=== PATIENT | female | born 1940 | race Caucasian/White ===

== ENCOUNTER 2017-01-05 11:20 | Observation (INO) | payer OTHER, MEDICARE ==
[~2017-01-05] VITALS: Ht 154.9 cm; Wt 90.7 kg
--- NOTE | 2017-01-05 11:24 | ED SYNCOPE COMPLAINT ---
History of Present Illness General Chief Complaint: Syncope and Near-Syncope Stated Complaint: BIBA NEAR SYNCOPE Source: patient, family, EMS Exam Limitations: no limitations Vital Signs & Intake/Output Vital Signs & Intake/Output Vital Signs Date Time Temp Pulse Resp B/P Pulse O2 O2 Flow FiO2 Ox Delivery Rate 01/05 1212 71 18 123/59 95 Room Air 01/05 1126 97.2 74 18 135/60 95 Room Air Allergies Coded Allergies: Sulfa (Sulfonamide Antibiotics) (UNKNOWN 01/05/17) Reconcile Medications Diltiazem HCl 120 MG TABLET 1 TAB PO TID HEART (Reported) Docusate Sodium (Stool Softener) 100 MG CAPSULE 2 CAP PO DAILY STOOL SOFTENER (Reported) Ferrous Sulfate 325 MG (65 MG IRON) TABLET 1 TAB PO DAILY SUPPLEMENT ( Reported) Folic Acid 0.8 MG TABLET 1 TAB PO DAILY SUPPLEMENT (Reported) Gabapentin 100 MG CAPSULE 1 CAP PO TID PAIN (Reported) Guaifenesin (Mucinex) 600 MG TAB.ER.12H 1 TAB PO BID COLD SYMPTOMS (Reported) Hydrocodone/Acetaminophen (Hydrocodon-Acetaminophen 5-325) 5 MG-325 MG TABLET 1 TAB PO Q4 HRS NEEDED PRN PAIN (Reported) Losartan Potassium 100 MG TABLET 1 TAB PO DAILY HEART (Reported) Lovastatin 40 MG TABLET 1 TAB PO QPM CHOLESTEROL (Reported) with food Multivitamin (Daily Multiple Vitamin) 1 EACH TABLET 1 TAB PO DAILY SUPPLEMENT (Reported) Omeprazole 40 MG CAPSULE.DR 1 CAP PO DAILY GI (Reported) Tramadol HCl 50 MG TABLET 1 TAB PO BIDP PRN PAIN (Reported) Warfarin Sodium (Coumadin) 2.5 MG TABLET 1 TAB PO 1700 BLOOD THINNER ( Reported) Triage Nurses Notes Reviewed? yes Timing: single episode today Precipitating Factors: SITTING IN SHOWER Context: DIZZINESS AFTER STANDING Loss of Consciousness: no loss of consciousness Associated Symptoms: DIZZY, WEAK, LEFT SHOULDER PAIN HPI: 76 year old female who presents via EMS from home for chief complaint of shoulder pain, dizziness and weakness while standing up from her shower chair. She transferred herself to the commode and then called the daughter for help. Patient was leaning forward, but no LOC, she was speaking to her the whole time. Patient has been getting PT and a visiting nurse at home since knee replacement. No chest pain, palpitations, dyspnea. Eating and drinking well at home. Vital signs stable yesterday. The patient is on new medications coumadin, gabapentin and hydrocodone. kateryna weaver Past History Travel History Traveled to [place] past 21 day No Medical History Any Pertinent Medical History? see below for history Cardiovascular: hypertension, hyperlipidemia, MVP Surgical History Surgical History: knee replacement (RIGHT) Family History Hx Contributory? No Review of Systems Review of Systems Constitutional: Reports: weakness. Denies: chills, fever. EENTM: Reports: no symptoms. Respiratory: Denies: cough, short of breath, sputum production. Cardiovascular: Denies: chest pain, palpitations, peripheral edema. GI: Denies: abdominal pain. Genitourinary: Reports: no symptoms. Musculoskeletal: Reports: joint pain. Skin: Reports: no symptoms. Neurological/Psychological: Reports: see HPI (DIZZY). All Other Systems: Reviewed and Negative Physical Exam Physical Exam General Appearance: well developed/nourished, alert, awake, anxious, moderate distress, obese Head: atraumatic, normal appearance Eyes: Bilateral: normal appearance, PERRL, EOMI. Ears, Nose, Throat: normal pharynx, normal ENT inspection, hearing grossly normal Neck: normal inspection, supple, full range of motion Respiratory: normal breath sounds, chest non-tender, no respiratory distress Cardiovascular: regular rate/rhythm Gastrointestinal: soft, non-tender Extremities: normal inspection, normal capillary refill, normal range of motion, swelling (MILD BILATERALLY), HEALING LEFT KNEE INCISION Psychiatric: awake, alert, oriented x 3 Cranial Nerves: normal hearing, normal speech, PERRL Coordination/Gait: SLOW, STEADY GAIT Skin: intact, normal color, warm/dry Core Measures ACS in differential dx? No CVA/TIA Diagnosis: No Severe Sepsis Present: No Septic Shock Present: No Progress Differential Diagnosis: AMI, orthostatic syncope, pulmonary embolus, NEAR SYNCOPE Plan of Care: Orders Procedure Date/time Status US-EXT BILAT VENOUS DOPPLER 01/05 1254 Active URINE DRUGS OF ABUSE 01/05 1147 Active MISTAKE 01/05 1136 Active Telemetry/Electromechanisms Design Drafter 01/05 1136 Active TROPONIN LEVEL 01/05 1136 Complete PARTIAL THROMBOPLASTIN TIME 01/05 1136 Complete PROTHROMBIN TIME 01/05 1136 Complete COMPREHENSIVE METABOLIC PANEL 01/05 1136 Complete CBC WITHOUT DIFFERENTIAL 01/05 1136 Complete EKG 01/05 1122 Active Laboratory Tests 01/05/17 1155: Anion Gap 8, Estimated GFR 29 L, BUN/Creatinine Ratio 20.6, Glucose 114 H, Calcium 10.8 H, Total Bilirubin 0.6, AST 31, ALT 39, Alkaline Phosphatase 123, Troponin I < 0.01, Total Protein 6.6, Albumin 3.6, Globulin 3.0, Albumin/ Globulin Ratio 1.2, CBC w Diff NO MAN DIFF REQ, RBC 3.11 L, MCV 93.8, MCH 31.1 H, RDW 13.9, MPV 6.6 L, Gran % 79.1 H, Lymphocytes % 14.8 L, Monocytes % 4.8, Eosinophils % 0.9, Basophils % 0.4, Absolute Granulocytes 9.1 H, Absolute Lymphocytes 1.7, Absolute Monocytes 0.5, Absolute Eosinophils 0.1, Absolute Basophils 0, PUBS MCHC 33.2 01/05/17 1147: PT 20.9 H, INR 2.00 H, APTT 26 Diagnostic Imaging: Viewed by Me: Radiology Read, Ultrasound. Discussed w/RAD: Radiology Read, Ultrasound. CXR Impression: PATIENT: JAIDA BAEZ PRESENT AGE: 76 PATIENT ACCOUNT NO: [id number] : 39 LOCATION: [facility] ORDERING PHYSICIAN: ABRAN CHAIREZ MD SERVICE DATE: 01/05/17 EXAM TYPE: RAD - XRY-CHEST XRAY , PA AND LATERAL EXAMINATION: XR CHEST CLINICAL INFORMATION: 76-year-old woman with back pain and near syncope. COMPARISON: 06/16/2014 chest radiograph TECHNIQUE: 2 views of the chest were obtained. FINDINGS: The lungs are well expanded and clear, without evidence of focal airspace consolidation or pulmonary edema. Heart size is within the range of normal. There are no pleural effusions. Degenerative changes are again noted in the lower thoracic spine. IMPRESSION: No radiographic evidence of an acute cardiopulmonary process. DICTATED BY: ERIC CASTRO MD DATE/TIME DICTATED:01/05/171318 V BELT COVERER: JORJE DATE/TIME TRANSCRIBED:01/05/171318 CONFIDENTIAL, DO NOT COPY WITHOUT APPROPRIATE AUTHORIZATION. <Electronically signed in Other Vendor System> SIGNED BY: ERIC CASTRO MD 01/05/17 1323 Initial ED EKG: RBBB Rhythm Strip: normal sinus rhythm Comments: PATIENT: JAIDA BAEZ PRESENT AGE: 76 PATIENT ACCOUNT NO: [id number] : 39 LOCATION: [facility] ORDERING PHYSICIAN: ABRAN CHAIREZ MD SERVICE DATE: 01/05/17 EXAM TYPE: US - US-EXT BILAT VENOUS DOPPLER EXAMINATION: US TRIPLEX LOWER EXTREMITY, BILATERAL CLINICAL INFORMATION: 76-year-old woman with near syncope. COMPARISON: None TECHNIQUE: Color-flow triplex imaging with spectral analysis and compression Doppler were performed on the bilateral lower extremities. FINDINGS: Respiratory variation, normal compression and augmented flow are noted throughout the bilateral lower extremities. The visualized common femoral vein, superficial femoral vein, profunda femoral vein, popliteal vein and midcalf peroneal and posterior tibial venous segments show no evidence of deep venous thrombosis. A thick-walled anechoic and avascular cyst is noted in the left popliteal fossa measuring 4.8 x 1.0 x 2.4 cm. IMPRESSION: No evidence of deep venous thrombosis involving the bilateral lower extremities. Left sided Headley's cyst. DICTATED BY: ERIC CASTRO MD DATE/TIME DICTATED:01/05/171355 V BELT COVERER:JORJE DATE/TIME TRANSCRIBED:01/05/171355 CONFIDENTIAL, DO NOT COPY WITHOUT APPROPRIATE AUTHORIZATION. <Electronically signed in Other Vendor System> SIGNED BY: ERIC CASTRO MD 01/05/17 1401 Departure Departure Time of Disposition: 1409 Disposition: STILL A PATIENT Condition: Stable Clinical Impression Primary Impression: Near syncope Referrals: GELA CONWAY MD (PCP/Family) Departure Forms: Customer Survey General Discharge Information Observation Note Spoke With: DAREN GUZMAN MD Physician Advisor Notified: PARKER GERMAN,CONSTANCE Loomis Patient In: Non-ED OBS Care Area Rationale for Observation: My rational for observation is as follows [EKG, TELE MONITOR, SERIAL EKG, SERIAL TROPONIN, F/U U/S RESULTS, CARDIOLOGY CONSULTATION, ECHOCARDIOGRAM].
--- NOTE | 2017-01-05 11:25 | NUR ---
76 YEAR OLD FEMALE C/O NEAR SYNCOPE. PER EMS REPORT PT STOOD UP AND FELT DIZZY BUT RESOLVED WHEN SHE SAT BACK DOWN. PT IS S/P RIGHT TOTAL KNEE REPLACEMENT LAST WEEK/ PT REPORTS TAKING HYDROCODONE AND TRAMADOL FOR PAIN MANAGEMENT.
--- NOTE | 2017-01-05 11:49 | NUR ---
DR. CHAIREZ TO BEDSIDE FOR EVAL.
--- NOTE | 2017-01-05 11:58 | NUR ---
LABS DRAWN AND SENT BY THIS [facility] (BLUE,2 SST,LAV,BRASHER)
[2017-01-05] MEDS ORDERED: HYDROCODON-ACE1 EAC2 PO (12:10)
[2017-01-05] MEDS ORDERED: GABAPENTIN100 M2 PO (12:10)
[2017-01-05] MEDS ORDERED: OMEPRAZOLE40 M1 PO (12:10)
[2017-01-05] MEDS ORDERED: TRAMADOL HCL50 M1 PO (12:10)
[2017-01-05] MEDS ORDERED: FERROUS SULFAT325 M3 PO (12:11)
[2017-01-05] MEDS ORDERED: LOVASTATIN40 M1 PO (12:11)
[2017-01-05] MEDS ORDERED: DILTIAZEM HCL120 M3 PO (12:11)
[2017-01-05] MEDS ORDERED: FOLIC ACID0.8 M2 PO (12:12)
[2017-01-05 12:13] LABS: ABSOLUTE BASOPHIL COUNT 0 /CUMM (0.0-0.2); ABSOLUTE EOSINOPHIL COUNT 0.1 /CUMM (0.0-0.7); ABSOLUTE GRANULOCYTE CT 9.1 /CUMM (1.4-6.5); ABSOLUTE LYMPH COUNT 1.7 /CUMM (1.2-3.4); ABSOLUTE MONOCYTE COUNT 0.5 /CUMM (0.10-0.60); BASOPHIL % 0.4 % (0.0-2.0); EOSINOPHIL % 0.9 % (0-5); GRANULOCYTE % 79.1 % (42.2-75.2); HEMATOCRIT 29.1 % (37-47); MEAN CORPUSCULAR HGB 31.1 PG (27.0-31.0); MEAN CORPUSCULAR HGB CONC 33.2 G/DL (33.0-37.0); MEAN CORPUSCULAR VOLUME 93.8 FL (81.0-99.0); MEAN PLATELET VOLUME 6.6 FL (7.4-10.4); PLATELET COUNT 576 /CUMM (130-400); RBC DISTRIBUTION WIDTH 13.9 % (11.5-14.5); RED BLOOD CELL CT 3.11 /CUMM (4.20-5.40); WHITE BLOOD CELL COUNT 11.5 /CUMM (4.8-10.8)
[2017-01-05] MEDS ORDERED: COUMADIN2.5 M1 PO (12:13)
[2017-01-05] MEDS ORDERED: LOSARTAN POTAS100 M1 PO (12:13)
[2017-01-05] MEDS ORDERED: DAILY MULTIPLE1 EACH PO (12:13)
[2017-01-05] MEDS ORDERED: STOOL SOFTENER100 M3 PO (12:13)
[2017-01-05] MEDS ORDERED: MUCINEX600 M1 PO (12:14)
[2017-01-05 12:17] LABS: PT 20.9 SEC (9.4-12.5); PTT 26 SEC (25-37)
--- NOTE | 2017-01-05 13:02 | NUR ---
PT TO RADIOLOGY FOR CHEST X-RAY VIA STRETCHER.
--- NOTE | 2017-01-05 13:23 | RADIOLOGY REPORT ---
EXAMINATION: XR CHEST CLINICAL INFORMATION: 76-year-old woman with back pain and near syncope. COMPARISON: 06/16/2014 chest radiograph TECHNIQUE: 2 views of the chest were obtained. FINDINGS: The lungs are well expanded and clear, without evidence of focal airspace consolidation or pulmonary edema. Heart size is within the range of normal. There are no pleural effusions. Degenerative changes are again noted in the lower thoracic spine. IMPRESSION: No radiographic evidence of an acute cardiopulmonary process.
--- NOTE | 2017-01-05 13:24 | NUR ---
PT TO US VIA STRETCHER.
--- NOTE | 2017-01-05 14:01 | ULTRASOUND REPORT ---
EXAMINATION: US TRIPLEX LOWER EXTREMITY, BILATERAL CLINICAL INFORMATION: 76-year-old woman with near syncope. COMPARISON: None TECHNIQUE: Color-flow triplex imaging with spectral analysis and compression Doppler were performed on the bilateral lower extremities. FINDINGS: Respiratory variation, normal compression and augmented flow are noted throughout the bilateral lower extremities. The visualized common femoral vein, superficial femoral vein, profunda femoral vein, popliteal vein and midcalf peroneal and posterior tibial venous segments show no evidence of deep venous thrombosis. A thick-walled anechoic and avascular cyst is noted in the left popliteal fossa measuring 4.8 x 1.0 x 2.4 cm. IMPRESSION: No evidence of deep venous thrombosis involving the bilateral lower extremities. Left sided Headley's cyst.
--- NOTE | 2017-01-05 14:41 | History & Physical ---
AMERICO LYNCH MD 01/05/17 1439: General Information and HPI Source of Information: patient, family Exam Limitations: no limitations History of Present Illness: Patient is an 76-year-old female with significant past medical history of hypertension, hyperlipidemia, mitral valve prolapse, right knee replacement surgery on 24 December presented with chief complaints of shoulder pain, dizziness and weakness after standing up from her shower chair. After that she called her daughter. Her Daughter called EMS. Patient denies headache, fever, chills, nausea, vomiting, palpitation, chest pain, weakness in any part of the limb, seizures, trauma, toungue bite. Although she claims that her PO intake is poor, and she always have anemia for which she takes iron preparation. She is on warfarin 2.5mg for DVT prophylaxis for right knee arthritis. Allergies/Medications Allergies: Coded Allergies: Sulfa (Sulfonamide Antibiotics) (UNKNOWN 01/05/17) Home Med list Diltiazem HCl 120 MG TABLET 1 TAB PO TID HEART (Reported) Docusate Sodium (Stool Softener) 100 MG CAPSULE 2 CAP PO DAILY STOOL SOFTENER (Reported) Ferrous Sulfate 325 MG (65 MG IRON) TABLET 1 TAB PO DAILY SUPPLEMENT ( Reported) Folic Acid 0.8 MG TABLET 1 TAB PO DAILY SUPPLEMENT (Reported) Gabapentin 100 MG CAPSULE 1 CAP PO TID PAIN (Reported) Guaifenesin (Mucinex) 600 MG TAB.ER.12H 1 TAB PO BID COLD SYMPTOMS (Reported) Hydrocodone/Acetaminophen (Hydrocodon-Acetaminophen 5-325) 5 MG-325 MG TABLET 1 TAB PO Q4 HRS NEEDED PRN PAIN (Reported) Losartan Potassium 100 MG TABLET 1 TAB PO DAILY HEART (Reported) Lovastatin 40 MG TABLET 1 TAB PO QPM CHOLESTEROL (Reported) with food Multivitamin (Daily Multiple Vitamin) 1 EACH TABLET 1 TAB PO DAILY SUPPLEMENT (Reported) Omeprazole 40 MG CAPSULE.DR 1 CAP PO DAILY GI (Reported) Tramadol HCl 50 MG TABLET 1 TAB PO BIDP PRN PAIN (Reported) Warfarin Sodium (Coumadin) 2.5 MG TABLET 1 TAB PO 1700 BLOOD THINNER ( Reported) Past History Travel History Traveled to [place] past 21 day No Medical History Cardiovascular: hypertension, hyperlipidemia, MVP Gastrointestinal: gerd Blood Disorders: anemia Surgical History Surgical History: knee replacement (RIGHT) Review of Systems Review of Systems Constitutional: Reports: weakness. Denies: no symptoms, chills, diaphoresis, fever, malaise. EENTM: Denies: no symptoms. Cardiovascular: Denies: chest pain, edema, orthopena, palpitations, peripheral edema. Respiratory: Denies: cough, hemoptysis, orthopnea, short of breath, sputum production, stridor. GI: Denies: abdominal pain, bloating, constipation, diarrhea, distention, bowel incontinence, melena, nausea. Genitourinary: Denies: discharge, dysuria, frequency, hematuria, hesitation. Musculoskeletal: Reports: joint pain, joint swelling. Denies: back pain, gout, muscle pain. Skin: Reports: dryness, erythema, rash. Neurological/Psychological: Reports: anxiety. Exam & Diagnostic Data Last 24 Hrs of Vital Signs/I&O Vital Signs Date Time Temp Pulse Resp B/P Pulse O2 O2 Flow FiO2 Ox Delivery Rate 01/05 2102 98.5 90 18 162/78 01/05 2012 98.5 90 18 162/78 96 Room Air 01/05 1909 84 135/88 01/05 1530 98.0 76 16 153/87 97 Room Air 01/05 1212 71 18 123/59 95 Room Air 01/05 1126 97.2 74 18 135/60 95 Room Air Intake & Output 01/05 1600 01/05 0800 01/05 0000 Intake Total 1000 Output Total Balance 1000 Intake, IV 1000 Physical Exam General Appearance Alert, Oriented X3, Cooperative, No Acute Distress, pale looking Skin No Rashes, healing wound on the right knee with surrounding erythema HEENT Atraumatic, PERRLA, EOMI Neck Supple, No JVD Cardiovascular Regular Rate, Normal S1, Normal S2 Lungs Clear to Auscultation Abdomen Normal Bowel Sounds, Soft, No Tenderness, distended Neurological Normal Speech Extremities No Clubbing, No Cyanosis, No Edema Vascular Normal Pulses, Pulses Symmetrical Assessment/Plan Assessment: Patient is an 76-year-old female with significant past medical history of hypertension, hyperlipidemia, mitral valve prolapse, right knee replacement surgery on 24 December presented with chief complaints of shoulder pain, dizziness and weakness after standing up from her shower chair. After that she called her daughter. Her Daughter called EMS. Vital signs at the time of admission-, 90 7.2, pulse 74, respiratory rate 18, blood pressure 150/60, SPO2 95% on room, orthostatic vitals-blood pressure 123/ 59 on lying, 127/59 on sitting, 103/54, and standing CXR 01/05/2017 No radiographic evidence of an acute cardiopulmonary process. Venous Doppler study 01/05/2017 No evidence of deep venous thrombosis involving the bilateral lower extremities. Left sided Headley's cyst. Pertinent labs -hemoglobin-9.7, PT/INR -20/2.0, creatinine 1.7, BUN- 35, Problem list - Syncopal/near-syncopal Anemia GIBSON secondary to dehydration Hypertension Hyperlipidemia Mitral valve prolapse Right knee-replaced Plan - * We'll give patient gentle hydration IV fluid -75cc/hr * We'll monitor patient in the telemetry/ observation * We'll continue all home medication losartan/diltiazem * We'll check orthostatic blood pressure * we will do echocardiogram * CODE STATUS-full code * DVT prophylaxis-ALP S/coumadin * Diet-heart healthy diet As Ranked By This Provider Problem List: 1. Near syncope 2. Mitral valve prolapse 3. Hyperlipidemia 4. Hypertension Core Measures/Miscellaneous Acute Coronary Syndrome ACS Diagnosis: No Cerebrovascular Accident CVA/TIA Diagnosis: No Congestive Heart Failure CHF Diagnosis: No Venous Thromboembolism VTE Risk Factors: Age > 40 VTE Prophylaxis Ordered Inpt: Mechanical (ALPS/TEDS) No Mech VTE prophylaxis d/t: No contraindications No VTE Pharm Prophylaxis d/t: No contraindications VTE Diagnosis: No VTE Type: NONE VTE Confirmed by (Test): NONE Severe Sepsis Severe Sepsis Present: No Septic Shock Septic Shock Present: No Miscellaneous Documentation Attending Case Discussed With: ANNIE CRAIN MD Primary Care Physician: MAN GERMAN,[facility] Patient sees these Specialists orthopedics Level of Patient Care: Telemetry ANNIE CRAIN MD 01/05/173: Attending Review Statement Attending Statement Attending MD Statement: examined this patient, discuss w/resident/PA/BARTENDERS, agreed w/resident/PA/BARTENDERS, discussed with family, reviewed EMR data (avail), discussed with nursing, reviewed images, amended to note Attending Assessment/Plan: 76 y/o F with pmh sig for htn, hpl, recent right knee surgery last month at [facility] now p/w pre syncope. She got out of shower this am anfd while standing she felt dizzy as if she was going to pass out. She called her daughter who caught her. No hx of cp, headache, palps. In ER patient was found to have orthostasis. Venous doppler US neg and INR therapeutic a pt on coumdin for DVT px after surgery. Since her surgery she has been working with PT. Vital Signs Date Time Temp Pulse Resp B/P Pulse O2 O2 Flow FiO2 Ox Delivery Rate 01/05 2012 98.5 90 18 162/78 96 Room Air 01/05 1909 84 135/88 01/05 1530 98.0 76 16 153/87 97 Room Air 01/05 1212 71 18 123/59 95 Room Air 01/05 1126 97.2 74 18 135/60 95 Room Air on exam; aox3, nad. cv; s1,s2, rrr resp; clear abd; soft, nt, bs+ ext; no edema. ms: + healing car on right knee. Laboratory Tests 01/05 01/05 01/05 1535 1155 1147 Chemistry Sodium (137 - 145 mmol/L) 137 Potassium (3.5 - 5.1 mmol/L) 5.1 Chloride (98 - 107 mmol/L) 101 Carbon Dioxide (22 - 30 mmol/L) 28 Anion Gap (5 - 16) 8 BUN (7 - 17 mg/dL) 35 H Creatinine (0.5 - 1.0 mg/dL) 1.7 H Estimated GFR (>60 ml/min) 29 L BUN/Creatinine Ratio (7 - 25 %) 20.6 Glucose (65 - 99 mg/dL) 114 H Calcium (8.4 - 10.2 mg/dL) 10.8 H Total Bilirubin (0.2 - 1.3 mg/dL) 0.6 AST (14 - 36 U/L) 31 ALT (9 - 52 U/L) 39 Alkaline Phosphatase (<127 U/L) 123 Troponin I (< 0.11 ng/ml) < 0.01 Total Protein (6.3 - 8.2 g/dL) 6.6 Albumin (3.5 - 5.0 g/dL) 3.6 Globulin (1.9 - 4.2 gm/dL) 3.0 Albumin/Globulin Ratio (1.1 - 2.2 %) 1.2 Coagulation PT (9.4 - 12.5 SEC) 20.9 H INR (0.90 - 1.19) 2.00 H APTT (25 - 37 SEC) 26 Hematology CBC w Diff NO MAN DIFF REQ WBC (4.8 - 10.8 /CUMM) 11.5 H RBC (4.20 - 5.40 /CUMM) 3.11 L Hgb (12.0 - 16.0 G/DL) 9.7 L Hct (37 - 47 %) 29.1 L MCV (81.0 - 99.0 FL) 93.8 MCH (27.0 - 31.0 PG) 31.1 H RDW (11.5 - 14.5 %) 13.9 Plt Count (130 - 400 /CUMM) 576 H MPV (7.4 - 10.4 FL) 6.6 L Gran % (42.2 - 75.2 %) 79.1 H Lymphocytes % (20.5 - 51.1 %) 14.8 L Monocytes % (1.7 - 9.3 %) 4.8 Eosinophils % (0 - 5 %) 0.9 Basophils % (0.0 - 2.0 %) 0.4 Absolute Granulocytes (1.4 - 6.5 /CUMM) 9.1 H Absolute Lymphocytes (1.2 - 3.4 /CUMM) 1.7 Absolute Monocytes (0.10 - 0.60 /CUMM) 0.5 Absolute Eosinophils (0.0 - 0.7 /CUMM) 0.1 Absolute Basophils (0.0 - 0.2 /CUMM) 0 PUBS MCHC (33.0 - 37.0 G/DL) 33.2 Toxicology Urine Opiates Screen (>2000 NG/ML) 1642.00 Methadone Screen (>300 NG/ML) 59 Barbiturate Screen (>200 NG/ML) < 60 Ur Phencyclidine Scrn (>25 NG/ML) < 6.00 Amphetamines Screen (>1000 NG/ML) < 100 U Benzodiazepines Scrn (>200 NG/ML) < 85 Urine Cocaine Screen (>300 NG/ML) < 50 Urine Cannabis Screen (>50 NG/ML) < 5.00 A/P; 76 y/o F coming on on tele OBS with presybncope and positive orthostasis. Tele OBS: Will start IVFs for gentle iv hydration. Tele monitor. check ECHO> Continue home meds, hold diuretics if any. DVT Px; Pt on coumadin. Full code. JUSTEN MIRELES MD 01/05/172116: Resident Review Statement Resident Statement: examined this patient, discussed with summer internship, agreed with summer internship, discussed with family, reviewed EMR data (avail) Other Findings: The patient is a 76-year-old woman with sa past medical history of hypertension, hyperlipidemia, mitral valve prolapse, and right knee replacement surgery on 24 December who presented with an episode of presyncope this morning . Her symptoms occurred right after she finished taking a shower after standing up from a sitting position. She suddenly felt light-headed and had to sit on a comode. She felt clammy, but denied palpitations or chest discomfort. She has been having a poor oral and fluid intake recently according to her visiting nurse. However, she denies headache, fever, chills, nausea, vomiting, or change in bowel habits. She denies weakness or numbness in any part of the body. Vital signs at the time of admission-, 90 7.2, pulse 74, respiratory rate 18, blood pressure 150/60, SPO2 95% on room, orthostatic blood pressure check was positive (123/59 on lying, 127/59 on sitting, and 103/54, on standing). Physical Exam General Appearance Alert, Oriented X3, Cooperative, No Acute Distress, pale looking Skin No Rashes, healing wound on the right knee with surrounding erythema HEENT Atraumatic, PERRLA, EOMI Neck Supple, No JVD Cardiovascular Regular Rate, Normal S1, Normal S2 Lungs Clear to Auscultation Abdomen Normal Bowel Sounds, Soft, No Tenderness, distended Neurological Normal Speech Extremities No Clubbing, No Cyanosis, No Edema Vascular Normal Pulses, Pulses Symmetrical Pertinent labs -hemoglobin-9.7, PT/INR -20/2.0, creatinine 1.7, BUN- 35, CXR 01/05/2017 No radiographic evidence of an acute cardiopulmonary process. Venous Doppler study 01/05/2017 No evidence of deep venous thrombosis involving the bilateral lower extremities. Left sided Headley's cyst Problem list 1. Near-syncopal attack-likely secondary to dehydration and orthostatic hypotension 2. GIBSON secondary to dehydration 3. Hypertension 4. Hyperlipidemia 5. Mitral valve prolapse 6. Right knee-replacement Plan Admit to telemetry unit IV normal saline @ 50 cc/hr Monitor BEP Serial EKGs and troponins to rule out ACS Echocardiogram in the AM Continue home medications: PO diltiazem 120 mg TID, losartan 100 mg daily omeprazole 40 mg daily, gabaprntin 100 mg TID Pain pathway and pain control with PRN vicodin and tramadol DVT prophylaxis coumadin 7.5 mg @1700 Code status is Full code
--- NOTE | 2017-01-05 15:36 | NUR ---
FOOD TRAY ORDERED FOR PT.
--- NOTE | 2017-01-05 15:38 | NUR ---
URINE SPECIMEN OBTAINED AND TRIO SENT TO LAB
--- NOTE | 2017-01-05 15:48 | NUR ---
PT GOING TO ROOM 179-1.
--- NOTE | 2017-01-05 17:13 | NUR ---
PER RN BED IS NOT READY, WILL CALL WHEN BED IS READY FOR REPORT.
--- NOTE | 2017-01-05 18:08 | NUR ---
NURSING NOTE: THIS RN CALLED ER FOR REPORT. WAS PLACED ON HOLD FOR SIX MINUTES. WILL CALL AGAIN IN A FEW MINUTES.
--- NOTE | 2017-01-05 19:08 | NUR ---
PT MEDICATED PER EMAR.
--- NOTE | 2017-01-05 19:14 | NUR ---
REPORT GIVEN TO DIANE MARTIN. [employer] CALLED FOR PT TRANSPORT.
[2017-01-05 20:12] VITALS: BP 162/78
--- NOTE | 2017-01-06 07:58 | PN- Housestaff ---
Subjective Follow-up For: GIBSON syncope Subjective: pt seen and examined, in no acute distress, no repeat episodes of diziness, orthostatic vitals have been negative. no other complaints. Review of Systems Constitutional: Denies: chills, fever. Cardiovascular: Denies: chest pain, palpitations. Respiratory: Denies: cough, short of breath, sputum production. Gastrointestinal: Denies: abdominal pain, nausea, vomiting. Objective Last 24 Hrs of Vital Signs/I&O Vital Signs Date Time Temp Pulse Resp B/P Pulse O2 O2 Flow FiO2 Ox Delivery Rate 01/06 0939 85 163/76 01/06 0938 163/76 01/06 0850 98.6 85 16 163/76 95 Room Air 01/05 2102 98.5 90 18 162/78 01/05 2012 98.5 90 18 96 Room Air Intake & Output 01/06 1600 01/06 0800 01/06 0000 Intake Total 885 400 900 Output Total 500 Balance 885 400 400 Intake, IV 225 300 500 Intake, Oral 660 100 400 Number 1 Bowel Movements Output, Urine 500 Patient 90.718 kg Weight Physical Exam General Appearance: Alert, Oriented X3, Cooperative, No Acute Distress Cardiovascular: Regular Rate, Normal S1, Normal S2, No Murmurs Lungs: Clear to Auscultation, Normal Air Movement Abdomen: Normal Bowel Sounds, Soft, No Tenderness Extremities: No Clubbing, No Cyanosis Current Medications: Current Medications Sig/Annabelle Start time Last Medication Dose Route Stop Time Status Admin Acetaminophen/ 1 TAB Q4 HRS NEEDED PRN 01/05 1830 DCD 01/06 Hydrocodone Bitart PO 1320 Atorvastatin Calcium 10 MG 1700 01/05 183 DCD 01/05 PO 1906 Diltiazem HCl 120 MG TID 01/05 2200 DCD 01/06 PO 0938 Docusate Sodium 200 MG DAILY 01/06 1000 DCD 01/06 PO 0939 Ferrous Sulfate 325 MG DAILY 01/06 1000 DCD 01/06 PO 0940 Folic Acid 1 MG DAILY 01/06 1000 DCD 01/06 PO 0940 Gabapentin 100 MG TID 01/05 2200 DCD 01/06 PO 0940 Losartan Potassium 100 MG DAILY 01/06 1000 DCD 01/06 PO 0939 Multivitamins 1 TAB DAILY 01/06 1000 DCD 01/06 Therapeutic PO 0940 Omeprazole 40 MG DAILY AC 01/06 0700 DCD 01/06 PO 0528 Sodium Chloride 1,000 ML Q20H 01/06 0200 DCD 01/06 IV 01/06 2879 7178 Sodium Chloride 500 ML BOLUS ONE 01/05 1730 DC 01/05 IV 01/05 2229 1906 Tramadol HCl 50 MG BID PRN 01/05 2200 DCD 01/06 PO 0938 Assessment/Plan Assessment: The patient is a 76-year-old woman with sa past medical history of hypertension, hyperlipidemia, mitral valve prolapse, and right knee replacement surgery on 24 December who presented with an episode of presyncope this morning . Her symptoms occurred right after she finished taking a shower after standing up from a sitting position. She suddenly felt light-headed and had to sit on a comode. She felt clammy, but denied palpitations or chest discomfort. She has been having a poor oral and fluid intake recently according to her visiting nurse. However, she denies headache, fever, chills, nausea, vomiting, or change in bowel habits. She denies weakness or numbness in any part of the body. Vital signs at the time of admission-, 90 7.2, pulse 74, respiratory rate 18, blood pressure 150/60, SPO2 95% on room, orthostatic blood pressure check was positive (123/59 on lying, 127/59 on sitting, and 103/54, on standing). Physical Exam General Appearance Alert, Oriented X3, Cooperative, No Acute Distress, pale looking Skin No Rashes, healing wound on the right knee with surrounding erythema HEENT Atraumatic, PERRLA, EOMI Neck Supple, No JVD Cardiovascular Regular Rate, Normal S1, Normal S2 Lungs Clear to Auscultation Abdomen Normal Bowel Sounds, Soft, No Tenderness, distended Neurological Normal Speech Extremities No Clubbing, No Cyanosis, No Edema Vascular Normal Pulses, Pulses Symmetrical Pertinent labs -hemoglobin-9.7, PT/INR -20/2.0, creatinine 1.7, BUN- 35, CXR 01/05/2017 No radiographic evidence of an acute cardiopulmonary process. Venous Doppler study 01/05/2017 No evidence of deep venous thrombosis involving the bilateral lower extremities. Left sided Headley's cyst Problem list 1. Near-syncopal attack-likely secondary to dehydration and orthostatic hypotension 2. GIBSON secondary to dehydration 3. Hypertension 4. Hyperlipidemia 5. Mitral valve prolapse 6. Right knee-replacement Plan Admit to telemetry unit IV normal saline @ 50 cc/hr Monitor BEP Serial EKGs and troponins to rule out ACS Echocardiogram in the AM Continue home medications: PO diltiazem 120 mg TID, losartan 100 mg daily omeprazole 40 mg daily, gabaprntin 100 mg TID Pain pathway and pain control with PRN vicodin and tramadol DVT prophylaxis coumadin 7.5 mg @1700 Code status is Full code Problem List: 1. Near syncope Pain Ratin Pain Location: none Pain Goal: Remain pain free Pain Plan: mild pp Tomorrow's Labs & Rationales: none
[2017-01-06 08:22] LABS: PT 21.2 SEC (9.4-12.5)
[2017-01-06 08:50] VITALS: BP 163/76
[2017-01-06 09:39] VITALS: BP 163/76
--- NOTE | 2017-01-06 13:05 | PN- Att Addend ---
Attending Addendum Attending Brief Note Patient seen and examined, feeling much better. No further episodes of dizziness. Vital Signs Date Time Temp Pulse Resp B/P Pulse O2 O2 Flow FiO2 Ox Delivery Rate 01/06 0939 85 163/76 01/06 0938 163/76 01/06 0850 98.6 85 16 163/76 95 Room Air 01/05 2102 98.5 90 18 162/78 01/05 2012 98.5 90 18 162/78 96 Room Air 01/05 1909 84 135/88 01/05 1530 98.0 76 16 153/87 97 Room Air on exam; aox3, nad. cv; s1,s2, rrr. resp; clear abd; soft, nt, bs+ ext; no edema. right knee has a clean scar. Laboratory Tests 01/06 01/05 0635 1535 Chemistry Sodium (137 - 145 mmol/L) 137 Potassium (3.5 - 5.1 mmol/L) 4.9 Chloride (98 - 107 mmol/L) 105 Carbon Dioxide (22 - 30 mmol/L) 25 Anion Gap (5 - 16) 7 BUN (7 - 17 mg/dL) 26 H Creatinine (0.5 - 1.0 mg/dL) 1.4 H Estimated GFR (>60 ml/min) 36 L BUN/Creatinine Ratio (7 - 25 %) 18.6 Coagulation PT (9.4 - 12.5 SEC) 21.2 H INR (0.90 - 1.19) 2.03 H Toxicology Urine Opiates Screen (>2000 NG/ML) 1642.00 Methadone Screen (>300 NG/ML) 59 Barbiturate Screen (>200 NG/ML) < 60 Ur Phencyclidine Scrn (>25 NG/ML) < 6.00 Amphetamines Screen (>1000 NG/ML) < 100 U Benzodiazepines Scrn (>200 NG/ML) < 85 Urine Cocaine Screen (>300 NG/ML) < 50 Urine Cannabis Screen (>50 NG/ML) < 5.00 A/P; 76 y/o F coming on on tele OBS with presybncope and positive orthostasis. After receiving IV fluids, orthostatic vital signs have improved. Patient currently denies any dizziness. Echocardiogram pending. Once that is done, patient can be discharged home today. She should follow-up with her primary care doctor as an outpatient. There were no telemetry events overnight.
--- NOTE | 2017-01-06 14:21 | Patient Discharge Instructions ---
Discharge Instructions General Discharge Information You were seen/treated for: Syncopal/near-syncopal likely secondary to orthostatic hypotension Anemia GIBSON secondary to dehydration Hypertension Hyperlipidemia You had these procedures: DIZZINESS, SYNCOPE, BLACK OUTS ETC, GO TO NEAREST HOSPITAL IN CASE OF EMERGENCY. Special Instructions: PLEASE F/U WITH YOUR PRIMARY CARE PHYSICIAN IN ONE WEEK. Diet Continue normal diet: Yes Recommended Diet: Heart Healthy Activity Activity Self Limited: Yes Acute Coronary Syndrome Inclusion Criteria At DC or during hospital stay patient has or had the following: ACS DIAGNOSIS No Discharge Core Measures Meds if any: Prescribed or Continued at Discharge Meds if any: NOT Prescribed or Continued at Discharge Congestive Heart Failure Inclusion Criteria At DC or during hospital stay patient has or had the following: CHF DIAGNOSIS No Discharge Core Measures Meds if any: Prescribed or Continued at Discharge Meds if any: NOT Prescribed or Continued at Discharge Cerebrovascular accident Inclusion Criteria At DC or during hospital stay patient has or had the following: CVA/TIA Diagnosis No Discharge Core Measures Meds if any: Prescribed or Continued at Discharge Meds if any: NOT Prescribed or Continued at Discharge Venous thromboembolism Inclusion Criteria VTE Diagnosis No VTE Type NONE VTE Confirmed by (Test) NONE Discharge Core Measures - Per Current guidelines, there needs to be overlap - treatment for the first 5 days of Warfarin therapy. - If discharged on Warfarin prior to 5 days of - overlap therapy, the patient will need to be - assessed for post discharge needs including - *Post discharge parental anticoagulation - *Warfarin and/or parental anticoagulation education - *Follow up date to check INR post discharge At least 5 days overlap therapy as Inpatient No Meds if any: Prescribed or Continued at Discharge Note: Overlap Therapy is Warfarin and Anticoagulant Meds if any: NOT Prescribed or Continued at Discharge
--- NOTE | 2017-01-07 07:20 | ECHOCARDIOGRAM REPORT ---
JAIDA BAEZ Age: 76 : 1940 Gender: F Exam Date: 01/06/2017 13:43 Exam Location: [address] Ht (in): 61 Wt (lb): 200 BSA: 2.02 BP: 162 / 78 Ordering Physician: JUSTEN MIRELES MD Referring Physician: JUSTEN MIRELES MD Technologist: Faith Lara [facility] Room Number: 179-01 Indications: PRESYNCOPE/SYNCOPE Rhythm: Sinus Technical Quality: good FINDINGS Left Ventricle Normal left ventricular size with mild left ventricular hypertrophy. Normal systolic function with no obvious regional wall motion abnormalities. Diastolic filling pattern is consistent with impaired LV relaxation. The ejection fraction is visually estimated at 75%. Right Ventricle The right ventricle is normal in size and function. Right Atrium The right atrium is normal in size. Left Atrium The left atrium is mildly enlarged. The interatrial septum is intact. Mitral Valve The mitral valve demonstrates mild mitral annular calcification with normal function. There is mild mitral regurgitation. Aortic Valve Mildly sclerotic aortic valve without significant stenosis. There is no aortic regurgitation. Tricuspid Valve The tricuspid valve is normal in structure and function. There is mild tricuspid regurgitation. Pulmonary artery systolic pressure is mildly elevated to 45mmHg. Pulmonic Valve Structurally normal pulmonic valve. There is trace pulmonic regurgitation. Pericardium Normal pericardium without effusion. No pleural effusion. Great Vessels Normal aortic root dimension. The aortic arch and great vessels are well seen and are normal. CONCLUSIONS 1. Normal EF of 75% with impaired LV relaxation. 2. Mild left ventricular hypertrophy. 3. Mild left atrial enlargment. 4. Mild mitral regurgitation. 5. Mild tricuspid regurgitation. 6. Trace pulmonic insufficiency. 7. Mild pulmonary hypertension. Avelino Hurd M.D. (Electronically Signed) Final Date: 07 January 2017 07:20 MEASUREMENTS (Male / Female) Normal Values 2D ECHO LV Diastolic Diameter PLAX 3.9 cm 4.2 - 5.9 / 3.9 - 5.3 cm LV Systolic Diameter PLAX 1.9 cm 2.1 - 4.0 cm LV Fractional Shortening PLAX 51.3 % 25 - 46 % LV Ejection Fraction 2D Teich 83.1 % IVS Diastolic Thickness 1.5 cm LVPW Diastolic Thickness 1.5 cm LV Relative Wall Thickness 0.8 RV Internal Dim ED PLAX 2.5 cm 1.9 - 3.8 cm LVOT Diameter 2.0 cm Aortic Root Diameter 2.8 cm LA Systolic Diameter LX 4.1 cm 3.0 - 4.0 / 2.7 - 3.8 cm LA Volume 35.0 cm 18 - 58 / 22 - 52 cm Ascending Aorta Diameter 3.4 cm DOPPLER AV Peak Velocity 238.0 cm/s AV Peak Gradient 22.7 mmHg AV Mean Velocity 171.0 cm/s AV Mean Gradient 13.0 mmHg AV Velocity Time Integral 46.9 cm LVOT Peak Velocity 194.0 cm/s LVOT Peak Gradient 15.1 mmHg LVOT Mean Velocity 151.0 cm/s LVOT Mean Gradient 10.0 mmHg LVOT Velocity Time Integral 40.0 cm LVOT Stroke Volume 125.7 cm AV Area Cont Eq vti 2.7 cm AV Area Cont Eq pk 2.6 cm MV Peak Velocity 158.0 cm/s MV Peak Gradient 10.0 mmHg MV Mean Velocity 101.0 cm/s MV Mean Gradient 5.0 mmHg Mitral E Point Velocity 108.0 cm/s Mitral A Point Velocity 154.0 cm/s Mitral E to A Ratio 0.7 MV PHT Velocity 126.0 cm/s MV Deceleration Hickman 472.0 cm/s MV Pressure Half Time 80.1 ms MV Area PHT 2.7 cm MV Deceleration Time 386.0 ms TR Peak Velocity 316.0 cm/s TR Peak Gradient 39.9 mmHg Right Atrial Pressure 5.0 mmHg Pulmonary Artery Systolic Pressu 44.9 mmHg Right Ventricular Systolic Press 44.9 mmHg PV Peak Velocity 209.0 cm/s PV Peak Gradient 17.5 mmHg PV Mean Velocity 132.0 cm/s PV Mean Gradient 8.0 mmHg PV Velocity Time Integral 36.7 cm LV E' Lateral Velocity 6.1 cm/s Mitral E to LV E' Lateral Ratio 17.6 LV E' Septal Velocity 5.6 cm/s Mitral E to LV E' Septal Ratio 19.4
== END 2017-01-06 15:42 ==
LOC: ENRESERVDT → ENRESERVTM → ERH 11:20 → ERHI 14:09 → EDBEDREQ 14:40 → 1NO 20:14
PROVIDERS: Emergency Medicine; Internal Medicine; ADMIT Hospitalist
DX: R55 Syncope and collapse (principal); I10 Essential (primary) hypertension; E78.5 Hyperlipidemia, unspecified; I34.1 Nonrheumatic mitral (valve) prolapse; D64.9 Anemia, unspecified; E86.0 Dehydration; M71.22 Synovial cyst of popliteal space [Baker], left knee; R60.0 Localized edema
CPT/HCPCS: 2000; 6020; 80307; 82436; 93005; 93010; 93306; 93970; G0378; J3490; J7040